=== PATIENT | female | born 1970 | race Caucasian/White ===

== ENCOUNTER 2017-03-26 13:28 | Inpatient (IN) | payer OTHER ==
[~2017-03-26] VITALS: Ht 165.1 cm; Wt 80.7 kg
--- NOTE | ~2017-03-26 | HP ---
Unit #: [id number] #: [id number] Patient: HARRIETT CORADO [id number] [place] [address] [id number] I MR#: [id number] NAME: HARRIETT CORADO ROOM: P252 Age: 46 Sex: F Admission Date: 03/26/2017 : 1970 Attending Physician: Tj Vizcarra M.D. Admitting Physician: Tj Vizcarra M.D. Primary Care Physician: Generic Doctor Not In System HISTORY AND PHYSICAL HISTORY OF PRESENT ILLNESS Harriett is a 46 year old admitted to [address] [place] [address] with depression and self-harming behavior. She has been cutting on her abdomen. She also reports illicit drug use which includes Methamphetamine. PAST MEDICAL HISTORY 1. History of self-harming. 2. Hypothyroidism. PAST SURGICAL HISTORY Nothing reported. ALLERGIES Penicillin, codeine, sulfa, Claritin. SOCIAL HISTORY Smokes one pack per day. Denies alcohol. Admits to a history of illicit substance abuse to include opioids and amphetamines. FAMILY HISTORY Medically noncontributory. REVIEW OF SYSTEMS CONSTITUTIONAL: No fever or chills. HEENT: Denies any sore throat, ear pain or runny nose. CARDIOVASCULAR: Denies chest pain, irregular heart rhythm or palpitations. CHEST: Denies shortness of breath or cough. No hemoptysis. GASTROINTESTINAL: Denies nausea, vomiting, diarrhea or chronic constipation. ENDOCRINE: Denies history of increased thirst or urination. No recent significant weight loss or gain. GENITOURINARY: Denies dysuria, frequency, or hematuria. SKIN: Denies any rashes. HEMATOLOGIC: Denies history of increased bleeding or bruising. MUSCULOSKELETAL: Denies any hot, swollen joints. No generalized muscle pain. NEUROLOGIC: Denies problems with vision or speech. No frequent, severe headaches. No numbness, tingling or weakness in any extremities. Denies loss of bladder or bowel control. CURRENT MEDICATIONS 1. Trazodone 75 mg q.h.s. 2. Vistaril 25 mg t.i.d. Unit #: [id number] #: [id number] Patient: HARRIETT CORADO 3. Zyprexa 10 mg q.h.s. 4. Milk of Magnesia p.r.n. 5. Maalox p.r.n. 6. Tylenol p.r.n. PHYSICAL EXAMINATION GENERAL: Alert, well nourished. No apparent distress. VITAL SIGNS: Blood pressure 110/84, heart rate 82, respirations 16, and temperature 98.6. WEIGHT: 178. HEIGHT: 5 feet 5 inches. SKIN: Warm and dry without rash. She has scratches along her abdomen. There is no increased redness, swelling, heat, or pus noted. HEENT: Normocephalic. TMs not viewed. Oral and nasal passages clear. Conjunctivae clear. PERRLA. EOMs intact. NECK: Supple without lymphadenopathy or thyromegaly. HEART: Regular rate and rhythm without murmur. LUNGS: Clear. ABDOMEN: Soft, nontender. : Not done. EXTREMITIES: No evidence of cyanosis, clubbing or edema. Moves all without focal deficit. NEUROLOGICAL: Grossly within normal limits. Cranial Nerves: II: Visual waters are intact. III, IV AND : Extraocular movements are intact. Pupils are equal, round and reactive to light. V: Facial sensation is grossly normal. VII: Facial movements and expression are normal. VIII: Auditory acuity grossly intact. IX, X: Uvula is midline. Phonation is normal. XI: Patient shrugs shoulders and turns head normally. XII: Tongue protrudes in the midline. Sensory and Motor Function: Sensory and motor sensation is grossly normal. Motor: moves all extremities well. Coordination: Gait is normal. Deep Tendon Reflexes: Intact. IMPRESSION Psychiatric admission. RECOMMENDATIONS PSYCHIATRIC: Per psychiatrist. MEDICAL: 1. I see no contraindication to participate in this facility's activities. 2. Check a TSH. MEDICAL PROGNOSIS Good. MEDICAL CONDITION Stable. Dictated by... Clara Mcintosh P.A.-C. for Leanna De Leon/elder Unit #: [id number] #: [id number] Patient: HARRIETT CORADO TD: 03/27/2017 13:04 JOB #: [id number] HISTORY AND PHYSICAL Page 1 of 1 X Clara Mcintosh X HISTORY AND PHYSICAL
--- NOTE | ~2017-03-26 | CO ---
Unit #: [id number] #: [id number] Patient: HARRIETT CORADO [id number] [place] [address] [id number] I MR#: [id number] NAME: HARRIETT CORADO ROOM: [facility] Age: 46 Sex: F Admission Date: 03/26/2017 : 1970 Attending Physician: Tj Vizcarra M.D. Primary Care Physician: Generic Doctor Not In System Consultation Date: 03/27/2017 CONSULTATION REPORT SUBJECTIVE Harriett is a 46-year-old who gives history of hypothyroidism. She has been noncompliant with her medications. The patient was seen for her admission H and P on 03/27/2017. We will obtain a TSH and proceed from there. She knows to follow up with PCP. Dictated by... Chetna Geller/radha TD: 03/27/2017 13:42 JOB #: [id number] CONSULTATION REPORT Page 1 of 1 X Clara Mcintosh CONSULTATION REPORT
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
--- NOTE | ~2017-03-26 | PN ---
Unit #: [id number] #: [id number] Patient: HARRIETT CORADO [id number] [facility] [address] [place] [address] [id number] I MR#: [id number] NAME: HARRIETT CORADO ROOM: P252 Age: 46 Sex: F Admission Date: 03/26/2017 : 1970 Attending Physician: Tj Vizcarra M.D. Admitting Physician: Tj Vizcarra M.D. Primary Care Physician: Generic Doctor Not In System [facility] PROGRESS NOTES DATE 03/28/2017 DISCUSSION Ms. aHrriett Corado is a 46-year-old female. The patient interviewed, chart reviewed, and obtained information from the nursing staff. The patient was compliant and cooperative. Mood sad and dysphoric. The patient keeping her head covered, refusing to answer any questions. REVIEW OF SYSTEMS Complete review of systems unremarkable. MENTAL STATUS EXAMINATION General appearance: Patient dressed casually. Attention span and concentration, fair. Oriented in time, place, and person. Mood and affect, sad and dysphoric, flat. Speech, minimal. Thought process, unable to assess. The patient is refusing to answer questions about thoughts of harming self or others. Recent and remote memory, poor. Insight and judgment, poor. DIAGNOSIS Major depressive disorder, recurrent, severe. ASSESSMENT/PLAN Advised to continue with the current medication and therapeutic protocol, and if needed consider further adjustment of medication. Dictated by... Leanna Cassidy/mann TD: 03/29/2017 05:13 JOB #: [id number] Unit #: [id number] #: [id number] Patient: HARRIETT CORADO [facility] PROGRESS NOTES Page 1 of 1 X Tj Vizcarra MD PROGRESS NOTE
--- NOTE | ~2017-03-26 | DS ---
Unit #: [id number] #: [id number] Patient: HARRIETT CORADO [id number] [facility] [address] [place] [address] [id number] I MR#: [id number] NAME: HARRIETT CORADO ROOM: [facility] Age: 46 Sex: F Admission Date: 03/26/2017 : 1970 Discharge Date: 03/29/2017 Attending Physician: Tj Vizcarra M.D. Primary Care Physician: Generic Doctor Not In System DISCHARGE SUMMARY REASON FOR ADMISSION Depression. DIAGNOSTIC STUDIES LABORATORY DATA: Unremarkable. HOSPITAL COURSE The patient was admitted to inpatient unit on March 26 and discharged on 03/29/2017. The patient was treated with group therapy, individual therapy, and medication management. The patient was responsive to treatment, showed improvement. Subsequently, the patient was discharged with a plan to follow up in outpatient program. DISCHARGE MEDICATIONS 1. Zyprexa 10 mg at bedtime for mood symptom. 2. Vistaril 25 mg 3 times a day for anxiety. 3. Trazodone 75 mg at bedtime for sleep. DISCHARGE DIAGNOSES PSYCHIATRIC: Major depressive disorder, recurrent, severe, F33.2 Psychosis not otherwise specified, F29.0. Amphetamine use disorder, severe, F15.20 SECONDARY: Deferred. MEDICAL: Thyroid problem. Hypothyroidism. STRESSORS: Psychosocial stressor. FOLLOWUP CARE The patient to follow up in outpatient clinic as per social work faculty member. CONDITION ON DISCHARGE The patient pleasant, cooperative. Denied any psychotic symptom or any suicidal ideation. PROGNOSIS Guarded. DIET AND ACTIVITY As tolerated. Dictated by... Tj Vizcarra M.D. Unit #: [id number] #: [id number] Patient: HARRIETT CORADO SZC/bzg TD: 03/30/2017 07:19 JOB #: [id number] DISCHARGE SUMMARY Page 1 of 1 X Tj Vizcarra MD X DISCHARGE SUMMARY
--- NOTE | ~2017-03-26 | PN ---
Unit #: [id number] #: [id number] Patient: HARRIETT CORADO [id number] [facility] [address] [place] [address] [id number] I MR#: [id number] NAME: HARRIETT CORADO ROOM: [facility] Age: 46 Sex: F Admission Date: 03/26/2017 : 1970 Attending Physician: Tj Vizcarra M.D. Admitting Physician: Tj Vizcarra M.D. Primary Care Physician: Generic Doctor Not In System [facility] PROGRESS NOTES DATE OF SERVICE: 03/27/2017 DISCUSSION Ms. Velázquez is a 46-year-old female. The patient interviewed, chart reviewed, and obtained information from nursing staff. The patient was compliant and cooperative. Mood is sad, dysphoric, anxious. Vital signs; temperature 98.0, pulse 63, and blood pressure 109/84. The patient reporting anxious, nervous, mood lability. Complete review of systems, unremarkable. MENTAL STATUS EXAMINATION General appearance, the patient dressed casually. Attention span and concentration, fair. Oriented in time, place, and person. Mood and affect, labile, guarded paranoid, mood lability. Recent and remote memory, poor. Insight and judgment, poor. DIAGNOSES Major depressive disorder, recurrent, severe. ASSESSMENT AND PLAN Advised to continue with current combination of trazodone 75 mg at bedtime, Vistaril 25 mg t.i.d., and Zyprexa 10 mg at bedtime. If needed, consider SSRI such as Prozac. We will continue to follow. Dictated by... Leanna Cassidy/radha TD: 03/27/2017 16:06 JOB #: [id number] Unit #: [id number] #: [id number] Patient: HARRIETT CORADO [facility] PROGRESS NOTES Page 1 of 1 X Tj Vizcarra MD PROGRESS NOTE
== END 2017-03-29 17:55 | disposition home or self-care (01) | DRG 885 ==
LOC: P2L 13:28 → P1S 13:28 → P2L 17:26
DX: F33.2 Major depressive disorder, recurrent severe without psychotic features (principal); F15.20 Other stimulant dependence, uncomplicated; F29 Unspecified psychosis not due to a substance or known physiological condition; Z88.0 Allergy status to penicillin; Z88.5 Allergy status to narcotic agent; Z88.8 Allergy status to other drugs, medicaments and biological substances; F17.210 Nicotine dependence, cigarettes, uncomplicated; E03.9 Hypothyroidism, unspecified; Z91.14 Patient's other noncompliance with medication regimen